=== PATIENT | male | born 1950 | race Caucasian/White ===

== ENCOUNTER 2018-04-14 09:06 | Outpatient (CLI) | payer MEDICARE ==
[~2018-04-14 09:06] MED LIST: BACL10TA2 PO; CHOL100046 PO; DOCU100C40 PO; FAMO-128 PO; FURO20TA4 PO; LACT10SO74 PO; LORA0.5T PO; METO25TA6 PO; OLAN2.5T28 PO; OXYC10TA47 PO; POTA10TA10 PO; RIFA550T PO; SERT25TA PO; SPIR100T5 PO; VITA80008 PO; ZINC50TA60 PO
== END 2018-04-14 23:59 | disposition home or self-care (01) ==
LOC: RAD 09:06
PROVIDERS: ATTEND Nurse Practitioner
DX: K70.30 Alcoholic cirrhosis of liver without ascites (principal); R16.1 Splenomegaly, not elsewhere classified; K76.6 Portal hypertension; D69.6 Thrombocytopenia, unspecified; K72.90 Hepatic failure, unspecified without coma; F10.10 Alcohol abuse, uncomplicated; B18.2 Chronic viral hepatitis C; Z88.5 Allergy status to narcotic agent; Z98.52 Vasectomy status
CPT/HCPCS: 76700

== ENCOUNTER 2018-11-13 08:27 | Outpatient (CLI) | payer MEDICARE | END 2018-11-13 23:59 | disposition home or self-care (01) | LOC: RAD 08:27 | PROVIDERS: ATTEND Nurse Practitioner | DX: K80.20 Calculus of gallbladder without cholecystitis without obstruction (principal); R16.1 Splenomegaly, not elsewhere classified; D69.6 Thrombocytopenia, unspecified; K72.90 Hepatic failure, unspecified without coma; B18.2 Chronic viral hepatitis C; I10 Essential (primary) hypertension; Z79.899 Other long term (current) drug therapy; Z79.82 Long term (current) use of aspirin | CPT/HCPCS: 76700 ==

== ENCOUNTER 2018-11-19 08:38 | Outpatient (CLI) | payer MEDICARE ==
[2018-11-19] MEDS ORDERED: iohexol 300mg/ml 100ml inj. ONE (08:52)
== END 2018-11-19 23:59 | disposition home or self-care (01) ==
LOC: 64 CT 08:38
PROVIDERS: ATTEND Transplant Surgery
DX: K74.60 Unspecified cirrhosis of liver (principal); R16.1 Splenomegaly, not elsewhere classified; K46.9 Unspecified abdominal hernia without obstruction or gangrene; F03.90 Unspecified dementia, unspecified severity, without behavioral disturbance, psychotic disturbance, mood disturbance, and anxiety; R56.9 Unspecified convulsions; I10 Essential (primary) hypertension; Z88.5 Allergy status to narcotic agent; Z79.899 Other long term (current) drug therapy
CPT/HCPCS: 74170; Q9967

== ENCOUNTER 2019-01-13 06:25 | Day surgery (SDC) | payer MEDICARE ==
[2019-01-13] VITALS (33 sets, daily range): BP systolic 95–148; BP diastolic 47–78
[~2019-01-13] VITALS: Ht 172.7 cm; Wt 97.7 kg
[2019-01-13] MEDS ORDERED: normal saline 1000ml 1,000 ML IV PRN (06:50)
[2019-01-13 07:55] LABS: BASOPHILS # (AUTO) 0.1 X10'3 (0-0.2); EOSINOPHILS % (AUTO) 0.2 % (0-6); HEMOGLOBIN 12.2 g/dl (14.0-17.9); LYMPHOCYTES # (AUTO) 0.8 X10'3 (1.1-4.8); MEAN CORPUSCULAR HEMOGLOBIN 31.7 PG (27.0-31.0); MEAN CORPUSCULAR HGB CONC 33.8 g/dL (33.0-36.5); MEAN CORPUSCULAR VOLUME 93.7 FL (78-98); MEAN PLATELET VOLUME 7.9 FL (7.4-10.4); MONOCYTES # (AUTO) 0.8 X10'3 (0-0.9); MONOCYTES % (AUTO) 12.9 % (2-12); NEUTROPHILS # (AUTO) 4.2 X10'3 (1.8-7.7); NEUTROPHILS % (AUTO) 71.9 % (42-75); PLATELET COUNT 56 X10'3 (140-440); RED BLOOD COUNT 3.85 X10'6 (4.70-6.10); RED CELL DISTRIBUTION WIDTH 17.6 % (11.5-14.5); WHITE BLOOD COUNT 5.9 X10'3 (4.5-11.0)
[2019-01-13] MEDS ORDERED: LIDOcaine 1%/PF 5ML 10 MG/ML VIAL SQ ONE (08:20)
[2019-01-13] MEDS ORDERED: midazolam 2 mg/2 ml injection IV PRN (08:20)
[2019-01-13] MEDS ORDERED: fentaNYL/PF 50MCG/1 ML 2ML syringe IV PRN (08:20)
[2019-01-13] MEDS ORDERED: albumin (human) 25% 100 ML IV solution IV ONE ×2 (08:55→09:40)
[2019-01-13 09:06] LABS: ALBUMIN 2.8 G/DL (3.4-5.0); ANION GAP 3 (8-16); BLOOD UREA NITROGEN 23 MG/DL (7-18); BUN/CREATININE RATIO 16.9 (5.4-32.0); CALCIUM 8.8 MG/DL (8.5-10.1); CHLORIDE 100 MMOL/L (99-107); CREATININE 1.36 MG/DL (0.60-1.10); POTASSIUM 4.3 MMOL/L (3.5-5.1); SODIUM 133 MMOL/L (135-145); TOTAL CARBON DIOXIDE 29.9 MMOL/L (24-32); eGFR 52 ML/MIN
[2019-01-13 09:11] LABS: GLUCOSE 101 MG/DL (70-104)
[2019-01-13] MEDS ORDERED: fentaNYL/PF 50MCG/1 ML 2ML syringe ONE (14:03)
[2019-01-13] MEDS ORDERED: midazolam 2 mg/2 ml injection ONE (14:03)
[2019-01-13] MEDS ORDERED: gelatin sponge, absorbable (Gelfoam 12-7MM) sponge TP ONE (14:13)
[2019-01-13] MEDS ORDERED: HYDROcodone/acetaminophen 5mg/325mg tablet PO PRN ×2 (14:40)
--- NOTE | 2019-01-13 17:06 | NUR ---
Problems reprioritized. Patient report given, questions answered & plan of care reviewed with MICHELLE Lopez. PT ambulated to the restroom and back tolerated well. PT stated he had a bowel movement and urinated. PT's RLQ paracentesis puncture site and liver biopsy site CDI. Denies any distress or discomfort at this time.
--- NOTE | 2019-01-13 17:39 | NUR ---
REC'D REPORT FROM KWAN MRATINEZ AT PT BEDSIDE-FAMILY PRESENT, PT RESTING COMFORTABLY-STATES HE WISHES TO REMAIN LYING FLAT AT THIS TIME-FOOD TRAY APPROX 30% EATEN. Addendum: 01/13/19 at 1741 by Roopa Hankins RN REPORT REC'D AT 1705
== END 2019-01-13 18:12 | disposition home or self-care (01) ==
LOC: SSTAY O 06:25
PROVIDERS: ATTEND Radiology Vascular & Interventional Radiology
DX: R18.8 Other ascites (principal); C22.7 Other specified carcinomas of liver; Z88.6 Allergy status to analgesic agent; Z88.3 Allergy status to other anti-infective agents; Z79.899 Other long term (current) drug therapy; Z98.890 Other specified postprocedural states
CPT/HCPCS: 36415; 36430; 47000; 49083; 77012; 80048; 85025; 85610; 86885; 86900; 86901; 88341; 88342; 99152; 99153; C1729; J2250; J3010; J7030; P9035; P9047; 88108; 88173; 88305

== ENCOUNTER 2019-01-24 19:00 | Emergency (ER) | payer MEDICARE ==
[~2019-01-24] VITALS: Ht 172.7 cm; Wt 99.5 kg
[~2019-01-24 19:00] MED LIST changes: -CHOL100046 PO; -DOCU100C40 PO; -FAMO-128 PO; -LACT10SO74 PO; -METO25TA6 PO; -OLAN2.5T28 PO; -OXYC10TA47 PO; -SERT25TA PO
[2019-01-24 20:05] LABS: BASOPHILS % (AUTO) 0.3 % (0-1); EOSINOPHILS % (AUTO) 0.1 % (0-6); HEMATOCRIT 33.2 % (42.0-52.0); HEMOGLOBIN 11.2 g/dl (14.0-17.9); LYMPHOCYTES # (AUTO) 0.8 X10'3 (1.1-4.8); LYMPHOCYTES % (AUTO) 9.9 % (21-51); MEAN CORPUSCULAR HEMOGLOBIN 32.1 PG (27.0-31.0); MEAN CORPUSCULAR HGB CONC 33.7 g/dL (33.0-36.5); MEAN CORPUSCULAR VOLUME 95.1 FL (78-98); MEAN PLATELET VOLUME 7.7 FL (7.4-10.4); MONOCYTES # (AUTO) 0.9 X10'3 (0-0.9); MONOCYTES % (AUTO) 11.6 % (2-12); NEUTROPHILS # (AUTO) 6.1 X10'3 (1.8-7.7); NEUTROPHILS % (AUTO) 78.1 % (42-75); PLATELET COUNT 62 X10'3 (140-440); RED BLOOD COUNT 3.49 X10'6 (4.70-6.10); RED CELL DISTRIBUTION WIDTH 19.5 % (11.5-14.5); WHITE BLOOD COUNT 7.8 X10'3 (4.5-11.0)
[2019-01-24 20:17] LABS: ALANINE AMINOTRANSFERASE 63 U/L (12-78); ALBUMIN 2.7 G/DL (3.4-5.0); ALKALINE PHOSPHATASE 185 IU/L (46-116); ANION GAP 8 (8-16); ASPARTATE AMINO TRANSFERASE 173 U/L (10-37); BILIRUBIN,TOTAL 5.5 MG/DL (0.1-1.0); BLOOD UREA NITROGEN 29 MG/DL (7-18); BUN/CREATININE RATIO 14.9 (5.4-32.0); CALCIUM 8.7 MG/DL (8.5-10.1); CHLORIDE 99 MMOL/L (99-107); CREATININE 1.94 MG/DL (0.60-1.10); GLUCOSE 122 MG/DL (70-104); POTASSIUM 4.1 MMOL/L (3.5-5.1); SODIUM 132 MMOL/L (135-145); TOTAL CARBON DIOXIDE 24.9 MMOL/L (24-32); eGFR 34 ML/MIN
[2019-01-24 20:19] LABS: PARTIAL THROMBOPLASTIN TIME 31 SECONDS (22-32)
[2019-01-24 20:34] LABS: ALBUMIN/GLOBULIN RATIO 0.7 (1.1-1.5); TOTAL PROTEIN 6.6 G/DL (6.4-8.2)
[2019-01-24] MEDS ORDERED: normal saline 1000ml 1,000 ML IV ONE (20:41)
[2019-01-24 21:01] LABS: COLOR,URINE YELLOW (Yellow); GLUCOSE, URINE NEGATIVE (Neg); KETONES,URINE NEGATIVE (Neg); LEUKOCYTE ESTERASE ,URINE TRACE (Neg); NITRITES, URINE NEGATIVE (Neg); OCCULT BLOOD,URINE LARGE (Neg); PH,URINE 5.5 (4.8-8.0); PROTEIN,URINE NEGATIVE (Neg)
[2019-01-24 21:08] LABS: UA COLLECTION TYPE VOIDED
[2019-01-24 21:09] LABS: BACTERIA,URINE FEW /HPF (Neg); CLARITY,URINE SLIGHTLY CLOUDY (Clear); SQUAMOUS EPITHELIAL CELL,UR FEW /LPF (FEW); WBC,URINE 0-4 /HPF (0-4)
[2019-01-24 21:10] LABS: MUCUS STRANDS FEW /LPF (Neg)
[2019-01-24] MEDS ORDERED: benzonatate 100mg capsule PO ONE (21:20)
[2019-01-24] MEDS ORDERED: normal saline 1000ML IV soln IVB ONE (22:30)
--- NOTE | 2019-01-24 22:46 | NUR ---
UP TO SIDE OF BED WITH 2 PERSON ASST. VOIDED SMALL AMT DARK GONZALO URINE VIA URINAL.
--- NOTE | 2019-01-24 23:40 | NUR ---
ORDERED AMBULATION CHALLENGE FOR SAFETY BEFORE DISCHAGE.
[2019-01-25 00:11] VITALS: BP 140/75
== END 2019-01-25 00:17 | disposition home or self-care (01) ==
LOC: ER 19:01
DX: E86.0 Dehydration (principal); K74.60 Unspecified cirrhosis of liver; N28.9 Disorder of kidney and ureter, unspecified; R40.4 Transient alteration of awareness; Z88.5 Allergy status to narcotic agent; Z79.899 Other long term (current) drug therapy; Z85.05 Personal history of malignant neoplasm of liver
CPT/HCPCS: 36415; 71045; 80053; 81001; 82140; 83605; 83735; 84145; 85025; 85610; 85730; 87040; 87088; 93005; 96360; 99284; J7030